=== PATIENT | female | born 1985 | race Caucasian/White ===

== ENCOUNTER 2022-01-26 18:30 | Emergency (ER) | payer OTHER ==
[~2022-01-26 18:30] MED LIST: BENADRYL25 MG PO; MEDROL 4MG DOSEP4 MG PO; NORCO 5-325 TA1 EACH PO
[2022-01-27] MEDS ORDERED: NAPROXEN500 MG PO (01:08)
[2022-01-27] MEDS ORDERED: PERCOCET 5-3251 EACH PO (01:08)
[2022-01-27] MEDS ORDERED: AMOX TR-K CLV1 EAC4 PO (01:08)
== END 2022-01-27 01:43 | disposition home or self-care (01) ==
LOC: FER 18:30
DX: K01.1 Impacted teeth (principal); F17.210 Nicotine dependence, cigarettes, uncomplicated
CPT/HCPCS: 99282; J1170